=== PATIENT | male | born 1945 | race African-American/Black ===

== ENCOUNTER → 2017-04-07 | Outpatient (CLI) | payer OTHER | LOC: FIMAGING 13:55 | PROVIDERS: ATTEND Family Medicine | DX: E04.2 Nontoxic multinodular goiter (principal); R49.0 Dysphonia; C34.92 Malignant neoplasm of unspecified part of left bronchus or lung ==

== ENCOUNTER 2017-04-16 12:35 | Day surgery (SDC) | payer OTHER ==
[2017-04-16] MEDS ORDERED: DEXAMETHASONE 10 MG/ML VIAL IVP ONE (12:48)
[2017-04-16] MEDS ORDERED: ceFAZolin 3 GM in D5W 100 ML IV ONE (12:48)
[2017-04-16] MEDS ORDERED: LIDOCAINE 1% 2 ML INJ ID PRN (12:49)
[2017-04-16] MEDS ORDERED: LR 1,000 ML IV ONE (12:49)
[2017-04-16] MEDS ORDERED: REMIFENTANIL HCL 1 MG VIAL ONE (13:39)
[2017-04-16] MEDS ORDERED: PROPOFOL/EMULSION 500 MG/50 ML BOTTLE IV ONE (13:40)
[2017-04-16] MEDS ORDERED: MIDAZOLAM 2 MG/2 ML VIAL ONE (13:40)
--- NOTE | 2017-04-16 13:40 | PDHPUP ---
History & Physical Update H&P update statement: This history and physical update is based on an assessment of the patient which was completed after admission or registration (within 24 hours), but prior to the surgery/procedure.
--- NOTE | 2017-04-16 13:41 | PDANEPAE ---
ANE Past Medical History - Cardiovascular History Hx Hypertension: No Hx Arrhythmias: No Hx Chest Pain: No Hx Coronary Artery / Peripheral Vascular Disease: No Hx CHF / Valvular Disease: No Hx Palpitations: No - Pulmonary History Hx COPD: No Hx Asthma/Reactive Airway Disease: No Hx Recent Upper Respiratory Infection: No Hx Oxygen in Use at Home: No Hx Sleep Apnea: No Sleep Apnea Screening Result - Last Documented: Negative Pulmonary History Comment: left lung non-small cell CA. Hx of Pulmonary Embolism 2009. Pulmonary Nodule. URI-02/13, resolved. - Neurologic History Hx Cerebrovascular Accident: No Hx Seizures: No Hx Dementia: No - Endocrine History Hx Diabetes: No - Renal History Hx Renal Disorders: No - Liver History Hx Hepatic Disorders: No - Neurological & Psychiatric Hx Hx Neurological and Psychiatric Disorders: No - Cancer History Hx Cancer: Yes Cancer History Comment: Lung CA-04/21/14. - Congenital Disorder History Hx Congenital Disorders: No - GI History Hx Gastrointestinal Disorders: Yes Gastrointestinal History Comment: Hx of Colon Polyps-benign. - Other Health History Other Health History: Gout, Hypercholesterolemia, Hyperlipidemia, erectile dysfunction. Glaucoma-eye drops. Permanent lower bridge. - Chronic Pain History Chronic Pain: No - Surgical History Prior Surgeries: left lung lobectomy. Thyroid BX-12/14. lung BX-01/14. ANE Review of Systems Review of Systems: - Exercise capacity METS (RN): 4 METS ANE Patient History - Allergies Allergies/Adverse Reactions: No Known Allergies Allergy (Unverified 01/04/14 09:37) - Home Medications Home Medications: Aspirin [Aspirin 81mg (*)] 81 mg PO DAILY 01/07/14 [Last Taken 04/10/17] Lovastatin 20 mg PO HS 01/07/14 [Last Taken 04/15/17 17:30] Herbals/Supplements -Info Only 1 ea PO DAILY 05/09/14 [Last Taken 04/15/17] Latanoprost 04/15/17 [Last Taken 04/15/17 23:00] Vitamins/Supplements 04/15/17 [Last Taken 04/15/17] - NPO status NPO Since - Liquids (Date): 04/16/17 NPO Since - Liquids (Time): 10:30 NPO Since - Solids (Date): 04/15/17 NPO Since - Solids (Time): 21:00 - Smoking Hx Smoking Status: Former smoker - Family Anes Hx Family Hx Anesthesia Complications: none ANE Labs/Vital Signs - Vital Signs Blood Pressure: 159/98 Heart Rate: 92 Respiratory Rate: 20 O2 Sat (%): 95 Height: 190.5 cm Weight: 120.202 kg ANE Physical Exam - Airway Neck exam: FROM Mallampati Score: Class 2 Mouth exam: normal dental/mouth exam - Pulmonary Pulmonary: no respiratory distress - Cardiovascular Cardiovascular: regular rate and rhythym - ASA Status ASA Status: II ANE Anesthesia Plan Anesthesia Plan: general endotracheal anesthesia
[2017-04-16] MEDS ORDERED: DEXAMETHASONE 4 MG/ML VIAL ONE ×2 (13:42)
[2017-04-16] MEDS ORDERED: ROCURONIUM 50 MG/5 ML VIAL ONE (13:42)
[2017-04-16] MEDS ORDERED: LIDOCAINE 2% 100 MG/5 ML SYR ONE (13:42)
[2017-04-16] MEDS ORDERED: METOCLOPRAMIDE 10 MG/2 ML VIAL ONE (13:42)
[2017-04-16] MEDS ORDERED: LIDO/EPI 2%** Not for Epidural 20 ML MDV ONE (14:21)
[2017-04-16] MEDS ORDERED: SUGAMMADEX SODIUM 200 MG/2 ML VIAL IVP ONE ×2 (14:59)
--- NOTE | 2017-04-16 15:14 | POSTOPPROG ---
Post Op Note Date of Operation: 04/16/17 Surgeon: Romie Anna Anesthesiologist: Dr Prince Mares Pre-op Diagnosis: Left vocal cord tumor Post-op Diagnosis: Same Indication: Hoarse voice and lesion on the left vocal cord Procedure: Direct Laryngoscopy/Microlaryngoscopy with biopsy Findings: mass on the left TVC extending to the anterior commissure Inf/Abcess present in the surg proc area at time of surgery?: No Depth: Superfical (Skin SQ) EBL: Minimal Complications: none Specimen(s): Left vocal cord mass
[2017-04-16] MEDS ORDERED: OXYCODONE/APAP 5/325 TAB PO PRN (15:16)
[2017-04-16] MEDS ORDERED: ALBUTEROL 3 ML DEYVIAL IH PRN (15:18)
[2017-04-16] MEDS ORDERED: fentaNYL 100 MCG/2 ML INJ IVP PRN (15:18)
[2017-04-16] MEDS ORDERED: NALOXONE HCL 0.4 MG/ML INJ IVP PRN (15:18)
[2017-04-16] MEDS ORDERED: EPINEPHrine RACEMIC INH 0.5 ML DEYVIAL IH ONE (15:20)
--- NOTE | 2017-04-16 15:21 | POSTANESTH ---
Post Anesthetic Evaluation Cardiovascular Status: Similar to Pre-Op Cond Respiratory Status: Similar to Pre-op Cond. Level of Consciousness/Mental Status: Mildly Sleepy, Arousable Pain Control: Adequate, Prn Tx Ordered Nausea/Vomiting Control: Adequate, Prn Tx Ordered Complications Possibly Related to Anesthesia: None Noted
--- NOTE | 2017-04-16 15:49 | GOP ---
[f rep st] OPERATIVE REPORT DATE OF OPERATION: 04/16/2017 SURGEON: Romie Anna MD ANESTHESIA: General. PREOPERATIVE DIAGNOSIS: Left vocal cord lesion. POSTOPERATIVE DIAGNOSIS: Left vocal cord lesion. PROCEDURE PERFORMED: 1. Direct laryngoscopy. 2. Suspension microlaryngoscopy with biopsy of left vocal cord lesion. FINDINGS: A firm mass of the left vocal fold involving the majority of the left vocal cord and extending up to the anterior commissure. It appeared that it extended to the very apex of the commissure . There was no evidence of subglottic extension. The remainder of the oropharyngeal exam and hypopharyngeal exam was normal. SPECIMENS: Left vocal cord tumor. ESTIMATED BLOOD LOSS: Minimal. INDICATIONS: The patient is a 72-year-old man with several months of worsening hoarseness. He was found on exam to have a mass of the left vocal fold and presents for biopsy for definitive diagnosis. DESCRIPTION OF PROCEDURE: Patient was taken to the OR, positively identified, placed on monitors, and general endotracheal anesthesia was induced. The table was then turned 90 degrees. The patient was draped in the normal fashion. A tooth guard was made out of Aquaplast and used to cover the upper incisors and decrease risk of injury. The anterior commissure laryngoscope was then used to examine the oral cavity and hypopharynx. Base of tongue was palpated. No lesions were noted. A direct laryngoscopy was then performed. The piriform sinuses appeared clear. Laryngeal exam was notable for the left vocal cord tumor. The patient was then placed in suspension. The microscope was then brought into the field. The lesion was examined with a microscope and palpated. The extent of the mass was determined as noted above. The 0-degree rigid cystoscope was then passed through the laryngoscope, and 0.1 mL of 2% lidocaine with 1:200,000 epinephrine was infiltrated in the left vocal fold. Three biopsies were then taken of the left vocal fold, and these were sent in formalin for pathologic evaluation. Bleeding was minimal. The patient was taken out of suspension. The dental guard was removed, and the patient was turned back over to Anesthesia. The anesthetic was discontinued. The patient was extubated and taken to postop care in good condition, having tolerated the procedure well. COMPLICATIONS: None. /[id number]/MODL MTDD
[2017-04-16 16:09] VITALS: TEMP 98.4
[2017-04-16 16:13] VITALS: RESP 16
[2017-04-16 16:51] VITALS: BP 134/87; O2SAT 91
[2017-04-16 16:56] VITALS: PULSE 96
== END 2017-04-16 17:05 | disposition home or self-care (01) ==
LOC: FSGY 12:35
PROVIDERS: ATTEND Otolaryngology
PROC: 0CBV8ZX Excision of Left Vocal Cord, Via Natural or Artificial Opening Endoscopic, Diagnostic (ICD-10-PCS; principal; 2017-04-16 14:30)
DX: J38.7 Other diseases of larynx (principal); R49.0 Dysphonia; E04.2 Nontoxic multinodular goiter; E78.5 Hyperlipidemia, unspecified; Z85.118 Personal history of other malignant neoplasm of bronchus and lung; Z86.711 Personal history of pulmonary embolism; Z87.891 Personal history of nicotine dependence
CPT/HCPCS: J0690; J1100; J2001; J2250; J2704; J2765

== ENCOUNTER → 2017-04-30 | Outpatient (CLI) | payer OTHER ==
[~2017-04-30] MED LIST: LIDOCAINE 1% 300 MG/30 ML SDV ONE
== END ==
LOC: FIMAGING 13:43
PROVIDERS: ATTEND Radiology Radiation Oncology
PROC: 0G9K3ZX Drainage of Thyroid Gland, Percutaneous Approach, Diagnostic (ICD-10-PCS; principal; 2017-04-30)
DX: E04.1 Nontoxic single thyroid nodule (principal)